=== PATIENT | male | born 1965 | race Caucasian/White ===

== ENCOUNTER 2020-07-30 10:23 | Emergency (ER) | payer OTHER, SELFPAY ==
[2020-07-30] VITALS (7 sets, daily range): BP systolic 131–164; BP diastolic 88–114; PULSE 69–90; RESP 12–16; TEMP 36.2; O2SAT 97–99
--- NOTE | ~2020-07-30 | XR_ITS ---
EXAMINATION: XR chest 2V DATE: 07/30/2020 11:00 INDICATION: Shortness of breath, chest pain and tightness. TECHNIQUE: frontal and lateral views of the chest were obtained. COMPARISON: None FINDINGS: The lungs are clear with no focal airspace opacities, pulmonary edema, pleural effusion or pneumothor ax. The cardiomediastinal silhouette is normal. Visualized bones and soft tissues are unremarkable. IMPRESSION: 1. No acute cardiopulmonary disease. Reviewed, dictated and finalized at location A.
--- NOTE | 2020-07-30 10:29 | ECG_ITS ---
Measurements Intervals Bertha Rate: 88 P: 81 NH: 136 QRS: 59 QRSD: 98 T: 40 QT: 340 QTc: 413 Interpretive Statements SINUS RHYTHM POSSIBLE LEFT ATRIAL ENLARGEMENT INCOMPLETE RIGHT BUNDLE BRANCH BLOCK BASELINE ARTIFACT- I, II, III, AVR, AVL BORDERLINE ECG Electronically Signed On 07-30-2020 11:10:30 CDT by Jeff Soares D.O.
--- NOTE | 2020-07-30 10:30 | ED.CHESTPAIN ---
HPI - Chest Pain General Chief Complaint: Chest Pain Stated Complaint: chest pain Time Seen by Provider: 07/30/20 10:30 History of Present Illness HPI narrative: previously healthy male presents to the ED for chest pain. He had sudden onset of severe left sided chest pain shortly before arrival here. The pain lasted only a few minutes, but he has had intermittent more mild shooting pains since that time. This was associated with mild dyspnea and pounding heart beat. He has had similar pain in the past and was referred to the stress test twice. Both were negative. He believes that his symptoms today were probably anxiety related. Related Data Allergies Allergy/AdvReac Type Severity Reaction Status Date / Time No Known Allergies Allergy Verified 07/30/20 11:09 Review of Systems Review of Systems: All systems reviewed & are unremarkable except as noted in HPI and below Constitutional: Constitutional: Denies chills, Denies fever(s) and Denies weakness Eyes: Eyes: Reports no additional eye complaints ENT: Denies sore throat Cardiovascular: Cardiovascular: Reports chest pain, Reports rapid heart rate and Denies radiating jaw, neck or arm pain Respiratory: Respiratory: Reports dyspnea Gastrointestinal: Gastrointestinal: Denies abdominal pain and Reports nausea Genitourinary: Genitourinary: Reports no additional male genitourinary complaints Musculoskeletal: Musculoskeletal: Denies back pain Neurologic: Denies confusion, Denies dizziness and Denies weakness Psychiatric: Psychiatric: Reports anxiety Endocrine: Endocrine: Reports no additional endocrine complaints [facility] Social History Social History (Updated 07/30/20 @ 12:49 by Tuan Carey MD) Smoking status: Never smoker Gender identity (if verbalized by the patient): Male Sexual Orientation (if Verbalized by the Patient): Straight or Heterosexual Exam Const: General: healthy appearing, no acute distress and alert Orientation/consciousness: patient oriented x3 HENMT: Head: normal to inspection Neck: Neck: normal visual inspection and no lymphadenopathy Chest: Chest palpation & inspection: no tenderness Resp: Effort & Inspection: normal respiratory effort Auscultation: clear to auscultation bilaterally, no rales, no rhonchi and no wheezes Cardio: Jugular venous distension: no JVD Rate: regular rate Rhythm: regular rhythm Heart sounds: no murmurs GI: Inspection: non-distended GI Palp: Yes Soft to palpation and No Tenderness to palpation present (GI) Skin: General skin exam: normal color Neuro: General: patient oriented x3 and moves all extremities Speech: normal speech Extrem: General: no edema Psych: Appearance: well kempt Affect: normal affect Course Vital Signs Vital signs: Vital Signs Temperature 36.2 C L 07/30/20 10:25 Pulse Rate 90 07/30/20 10:25 Respiratory Rate 16 07/30/20 10:25 Blood Pressure 161/96 H 07/30/20 10:25 Pulse Oximetry 99 07/30/20 10:25 Temperature 36.2 C L 07/30/20 10:25 Pulse Rate 69 07/30/20 13:20 Respiratory Rate 16 07/30/20 13:20 Blood Pressure 131/97 H 07/30/20 13:20 Pulse Oximetry 99 07/30/20 13:20 MDM - Chest Pain MDM Narrative Medical decision making narrative: Nonspecific EKG without acute changes. Troponin negative x2. Symptoms seem to be at least in part due to anxiety. Labs suggest dehydration Differential Diagnosis Differential diagnosis: Likely atypical chest pain and chest pain Medical Records Data Attestation: I reviewed the patient's medical records. Lab Data Attestation: I reviewed the patient's lab results. Result diagrams: 07/30/20 10:30 07/30/20 10:30 Labs: Lab Results 07/30/20 07/30/20 07/30/20 Range/Units 10:30 10:30 10:30 WBC 7.7 (4.5-10.0) K/mm3 RBC 5.53 (4.6-6.20) M/mm3 Hgb 18.1 H (14.0-18.0) g/dL Hct 52.7 H (42.0-52.0) % MCV 95.3 (80-100) fl MCH 32.7 (26-34) pg MCH
[2020-07-30] MEDS: ASPIRIN 81 MG CHEWABLE TABLET 324 MG PO (10:51)
[2020-07-30 11:19] LABS: Basophils Percent Auto 0.3 % (0.2-1.2); Eosinophils Absolute Auto 0.1 K/mm3 (0-0.3); Eosinophils Percent Auto 1.2 % (0-4.4); Hematocrit 52.7 % (42.0-52.0); Hemoglobin 18.1 g/dL (14.0-18.0); Immature Granulocyte Absolute 0.03 K/mm3 (0.00-0.031); Immature Granulocyte Percent A 0.4 % (0-0.5); Lymphocytes Percent Auto 24.6 % (18.3-44.2); Mean Corpuscular HGB Conc 34.3 g/dl (32-36); Mean Corpuscular Hemoglobin 32.7 pg (26-34); Mean Corpuscular Volume 95.3 fl (80-100); Mean Platelet Volume 10.5 fl (7.4-10.4); Monocytes Absolute Auto 0.7 K/mm3 (0.1-0.6); Monocytes Percent Auto 8.5 % (2.6-8.5); Platelet Count Result 229 k/mm3 (150-375); Red Blood Count 5.53 M/mm3 (4.6-6.20); White Blood Count 7.7 K/mm3 (4.5-10.0)
[2020-07-30 11:28] LABS: Partial Thromboplastin Time 24.7 SECONDS (22.3-36.8); Prothrombin Time 13.4 Seconds (11.1-14.7)
[2020-07-30 11:31] LABS: Anion Gap 4 mmol/L (8-16); Blood Urea Nitrogen 22 mg/dL (9-20); Calcium 9.7 mg/dL (8.4-10.2); Carbon Dioxide 31 mmol/L (22-30); Chloride 104 mmol/L (98-107); Estimated CRCL calculation 54 ml/min; Estimated Glomerular Filt Rate 53; Glucose 116 mg/dL (75-110); Potassium 3.8 mmol/L (3.4-5.0); Sodium 139 mmol/L (137-145)
[2020-07-30 11:44] LABS: Troponin I < 0.012 ng/mL (0.000-0.034)
[2020-07-30] MEDS: NITROGLYCERIN SL 0.4 MG TABLET SUBLINGUAL (12:23)
--- NOTE | 2020-07-30 12:25 | PC.NURSE ---
X1 DOSE 0.4 NITRO GIVEN WITH CP RELIEF PER PT
[2020-07-30] MEDS: SODIUM CHLORIDE 0.9% IV 1,000 ML 999 ML IV CONT (12:26)
[2020-07-30 13:52] LABS: Troponin I < 0.012 ng/mL (0.000-0.034)
== END 2020-07-30 14:20 | disposition home or self-care (01) ==
PROVIDERS: Emergency Provider Emergency Medicine
DX: R07.89 Other chest pain (principal); I45.10 Unspecified right bundle-branch block; R94.31 Abnormal electrocardiogram [ECG] [EKG]
CPT/HCPCS: 36415; 71046; 80048; 84484; 85025; 85610; 85730; 93005; 96360; 99284; A9270; J7030